=== PATIENT | female | born 1970 | race Caucasian/White ===

== ENCOUNTER 2019-03-12 12:29 | Emergency (ER) | payer OTHER ==
[~2019-03-12] VITALS: Ht 175.3 cm; Wt 78.5 kg
--- NOTE | 2019-03-12 13:31 | RAD ---
3 views left wrist dated 03/12/2019. No comparison available. Clinical data indication: Pain after injury. FINDINGS: 2 views left wrist show normal bony alignment. No displaced fracture. No acute osseous or articular abnormality. No periostitis or bone destruction. IMPRESSION: No acute radiographic abnormality. Electronically signed by: Priyank Vasquez MD (03/12/2019 1:29 PM) [id number]
[2019-03-12] MEDS ORDERED: DICL50TA2 PO (13:42)
--- NOTE | 2019-03-12 13:43 | PHYS DOC ---
Past Medical History Past Medical History: No Pertinent History (HANG SHARP APRN) Past Surgical History: Tubal ligation, Other Additional Past Surgical Histo: DENTAL (HANG SHARP APRN) Alcohol Use: Occasionally Drug Use: None (HANG SHARP APRN) Adult General Chief Complaint Chief Complaint: UPPER EXTREMITY PAIN HPI HPI Patient is a 48 year old female who presents to the ED complaining of 8 out of 10 left wrist pain, symptoms began a couple minutes prior to coming to the ED, patient states she was watering plants at work when she accidentally fell. Patient denies any loss of consciousness. She states the pain is diffusely throughout the wrist, she describes the pain as sharp and intermittent worse on certain movements. She has a brace on her states it's been helping with the pain. (HANG SHARP APRN) Review of Systems Review of Systems Constitutional: Denies fever or chills [] Musculoskeletal: Reports left wrist pain Integument: Denies rash or skin lesions [] Neurologic: Denies headache, focal weakness or sensory changes [] All other systems were reviewed and found to be within normal limits, except as documented in this note. (HANG SHARP APRN) Allergies Allergies Allergies Coded Allergies Type Severity Reaction Last Updated Verified Penicillins Allergy Intermediate 03/12/19 Yes (TAMMIE SAGE MD) Physical Exam Physical Exam Constitutional: Well developed, well nourished, no acute distress, non-toxic appearance. [] Skin: Warm, dry, no erythema, no rash. [] Back: No tenderness, no CVA tenderness. [] Extremities: Left wrist with no obvious deformity, no scaphoid tenderness. Full range of motion to the left wrist and fingers. Adequate radial, medial, ulnar sensation to the left fingers. +2 left radial pulse. Cap refill less than 2 seconds the left fingers. Neurologic: Alert and oriented X 3, normal motor function, normal sensory function, no focal deficits noted. [] Psychologic: Affect normal, judgement normal, mood normal. [] (HANG SHARP APRN) Current Patient Data Vital Signs Vital Signs Date Time Temp Pulse Resp B/P (MAP) Pulse Ox O2 Delivery O2 Flow Rate FiO2 03/12/19 13:53 80 16 129/76 (93) 97 Room Air 03/12/19 12:41 98.2 98.2 (TAMMIE SAGE MD) EKG EKG [] (HANG SHARP APRN) Radiology/Procedures Radiology/Procedures []PROCEDURE: WRIST 3V LEFT 3 views left wrist dated 03/12/2019. No comparison available. Clinical data indication: Pain after injury. FINDINGS: 2 views left wrist show normal bony alignment. No displaced fracture. No acute osseous or articular abnormality. No periostitis or bone destruction. IMPRESSION: No acute radiographic abnormality. Electronically signed by: Priyank Vasquez MD (03/12/2019 1:29 PM) [id number] DICTATED and SIGNED BY: PRIYANK VASQUEZ MD DATE: 03/12/19 1328 (HANG SHARP APRN) Course & Med Decision Making Course & Med Decision Making Pertinent Labs and Imaging studies reviewed. (See chart for details) This is a 48-year-old female patient presenting with left wrist pain status post falling. Left wrist x-rays interpreted by radiologist are negative for any acute findings. Patient already splinted. Ice elevation encouraged. Neurovascular exam is intact. Follow-up with orthopedic doctor in one week. (HANG SHARP APRN) Course & Med Decision Making Patient was seen by ANDREW, I did not evaluate the patient unless otherwise specified in the chart. (TAMMIE SAGE MD) Dragon Disclaimer Dragon Disclaimer This electronic medical record was generated, in whole or in part, using a voice recognition dictation system. (HANG SHARP APRN) Departure Departure Impression: Primary Impression: Fall from standing Additional Impression: Left wrist sprain Disposition: 01 HOME, SELF-CARE Condition: STABLE Referrals: UNKNOWN PCP NAME (PCP) MERISSA GREWAL MD follow up in 1 week Patient Instructions: Wrist Sprain with [facility] Additional Instructions: You were evaluated for wrist pain, your wrist x-rays are negative. Try to ice elevate the extremity. Take [id number] pain relievers. Follow-up with orthopedic doctor or your own doctor and ask if pain persists. Scripts Diclofenac Potassium (DICLOFENAC POTASSIUM) 50 Mg Tablet 1 TAB PO BID, #60 TAB Prov: HANG SHARP APRN 03/12/19 Problem Qualifiers Primary Impression: Fall from standing Encounter type: initial encounter Qualified Codes: W19.XXXA - Unspecified fall, initial encounter Additional Impression: Left wrist sprain Encounter type: initial encounter Qualified Codes: S63.502A - Unspecified sprain of left wrist, initial encounter HANG SHARP APRN March 12, 2019 13:43 TAMMIE SAGE MD March 12, 2019 17:25
[2019-03-12 13:53] VITALS: BP 129/76
== END 2019-03-12 13:53 | disposition home or self-care (01) ==
LOC: ER 12:29
DX: S63.502A Unspecified sprain of left wrist, initial encounter (principal); W18.39XA Other fall on same level, initial encounter; Z88.0 Allergy status to penicillin; Y93.89 Activity, other specified; Y92.69 Other specified industrial and construction area as the place of occurrence of the external cause; Y99.0 Civilian activity done for income or pay
CPT/HCPCS: 29125; 73110; 96372; 99284-25